=== PATIENT | female | born 1955 | race Caucasian/White ===

== ENCOUNTER → 2020-03-22 | Outpatient (CLI) | payer SELFPAY ==
--- NOTE | 2020-03-22 14:19 | US_ITS ---
STUDY: ULTRASOUND BREAST - RIGHT REASON FOR EXAM: Female, 64 years old. Palpable lump in the right breast. TECHNIQUE: Axial and longitudinal images of the RIGHT breast were performed with a high resolution ultrasound transducer. # OF IMAGES: 24 COMPARISON: Comparison is made with prior mammogram done earlier in the day. FINDINGS: RIGHT Breast: The palpable abnormality corresponds to a 1.5 cm x 1.5 cm x 1.4 cm lobulated hypoechoic solid mass. This is at the 12 o''clock position breast at 3 cm from nipple. There is evidence of increased color flow into the lesion. Biopsy recommended. US/Breast Limited Unilateral IMPRESSION: 1.5 cm x 1.5 cm x 1.4 cm lobulated hypoechoic solid mass at the 12 o''clock position of the breast at 3 cm from nipple. A biopsy is recommended. ASSESSMENT CATEGORY: BIRADS Category 5: Highly Suggestive of Malignancy - Appropriate Action Should Be Taken. A letter regarding these results will be sent to the patient by the facility within 30 days. Electronically Signed: Agustin Moura, at 15:42 EDT , Service support ,
--- NOTE | 2020-03-22 14:19 | BI_ITS ---
MAMMOGRAPHY - BILATERAL DIAGNOSTIC REASON FOR EXAM: Female, 64 years old. 3 week history of right breast lump. PERTINENT HISTORY: TECHNIQUE: Digital bilateral breast ananya (3D mammographic acquisition) in the CC and MLO projections. 2-D mediolateral oblique (MLO) and craniocaudad (CC) views of both breasts were obtained. CAD: Full Field Digital Mammography with Computer Added Detection was performed. COMPARISON: Comparison is made with prior examination dated 11/05/2011. FINDINGS: Breast Composition: The breasts are heterogeneously dense, which may obscure small masses. The palpable abnormality corresponds to a 1.3 cm x 1.6 cm spiculated nodule in the upper deep medial portion of the right breast. Microcalcifications are seen within it. Correlation with biopsy is recommended. Small benign-appearing bilateral axillary lymph nodes. No other significant abnormalities are identified. BI/DIAG MAMM W/CAD, BILAT IMPRESSION: The palpable abnormality corresponds to a 1.3 cm x 1.6 cm spiculated nodule in the upper deep medial portion of the right breast with microcalcifications. Biopsy is recommended. ASSESSMENT CATEGORY: BIRADS Category 5: Highly Suggestive of Malignancy - Appropriate Action Should Be Taken. A letter regarding these results will be sent to the patient by the facility within 30 days. Approximately 10% of breast cancers are not detected by mammography. A normal mammogram should not delay biopsy of a clinically suspicious abnormality. Electronically Signed: Agustin Moura, at 15:23 EDT , Service support ,
== END | disposition home or self-care (01) ==
LOC: OPBI 14:11
PROVIDERS: PCP Preventive Medicine Public Health & General Preventive Medicine; Referring Provider Preventive Medicine Public Health & General Preventive Medicine; Visit Provider Preventive Medicine Public Health & General Preventive Medicine
DX: N63.10 Unspecified lump in the right breast, unspecified quadrant (principal)
CPT/HCPCS: 76642; 77062; 77066; G0279

== ENCOUNTER → 2020-06-29 08:57 | Outpatient (CLI) | payer SELFPAY ==
--- NOTE | 2020-06-29 09:05 | BI_ITS ---
MAMMOGRAPHY - UNILATERAL DIAGNOSTIC: RIGHT BREAST REASON FOR EXAM: Female, 65 years old. Right breast lump. PERTINENT HISTORY: Personal history of breast cancer. Prior biopsy. TECHNIQUE: Digital unilateral breast ananya (3D mammographic acquisition) in the CC and MLO projections. 2-D mediolateral oblique (MLO) and craniocaudad (CC) views of both breasts were obtained. CAD: Full Field Digital Mammography with Computer Added Detection was performed. COMPARISON: Comparison is made with prior study dated 03/22/2020. FINDINGS: Breast Composition: The breasts are heterogeneously dense, which may obscure small masses. A tissue clip marker is seen in the irregular nodular density in the upper deep central portion of the right breast. The previously seen nodular density as decreased in size. It presently measures 1.1 cm x 1.2 cm. No other significant abnormalities are identified. BI/DIAG MAMM W/CAD, UNILAT IMPRESSION: Mild decrease in the size of the previously seen irregular nodule in the deep central portion of the right breast. ASSESSMENT CATEGORY: BIRADS Category 4: Suspicious - Biopsy Should Be Considered. A letter regarding these results will be sent to the patient by the facility within 30 days. Approximately 10% of breast cancers are not detected by mammography. A normal mammogram should not delay biopsy of a clinically suspicious abnormality. Electronically Signed: Agustin Moura MD at 10:52 EST , Service support ,
--- NOTE | 2020-06-29 09:54 | US_ITS ---
STUDY: ULTRASOUND BREAST - RIGHT REASON FOR EXAM: Female, 65 years old. Palpable lump in the right breast. TECHNIQUE: Axial and longitudinal images of the RIGHT breast were performed with a high resolution ultrasound transducer. # OF IMAGES: 31 COMPARISON: Comparison is made with prior ultrasound of the right breast dated 03/22/2020. FINDINGS: RIGHT Breast: The previously seen lobulated hypoechoic mass at the 12 o''clock position of the breast at 3 cm from nipple presently measures 1 cm x 1.7 cm x 0.9 cm. Increased vascularity is seen. US/Breast Limited Unilateral IMPRESSION: Persistent 1 cm x 1.7 cm x 0.9 cm irregular hypoechoic solid nodule at the 12 o''clock position of the breast at 3 cm from nipple. ASSESSMENT CATEGORY: BIRADS Category 4: Suspicious - Biopsy Should Be Considered. A letter regarding these results will be sent to the patient by the facility within 30 days. Electronically Signed: Agustin Moura MD at 10:53 EST , Service support ,
== END ==
PROVIDERS: PCP Preventive Medicine Public Health & General Preventive Medicine; Referring Provider Preventive Medicine Public Health & General Preventive Medicine; Visit Provider Preventive Medicine Public Health & General Preventive Medicine
DX: C50.919 Malignant neoplasm of unspecified site of unspecified female breast (principal)
CPT/HCPCS: 76642; 77061; 77065; G0279

== ENCOUNTER → 2020-09-04 13:36 | Outpatient (CLI) | payer SELFPAY ==
--- NOTE | 2020-09-04 14:22 | EKG12_ITS ---
Test Reason : PREOP Blood Pressure : / mmHG Vent. Rate : 064 BPM Atrial Rate : 064 BPM P-R Int : 122 ms QRS Dur : 074 ms QT Int : 392 ms P-R-T Axes : 054 019 038 degrees QTc Int : 404 ms Normal sinus rhythm Normal ECG Confirmed by DAGOBERTO HURST, DELMIS ([id number]), book editor SCOOTER ARTHUR ([id number]) on 09/05/2020 8:28:17 AM Referred By: JHOANA ROY Confirmed By:DELMIS ARENAS MD
--- NOTE | 2020-09-04 14:40 | RAD_ITS ---
STUDY: X-RAY CHEST REASON FOR EXAM: Female, 65 years old. PREOP TECHNIQUE: PA and lateral views of the chest. COMPARISON: None. FINDINGS: The lungs are clear and expanded. There is no demonstrated pleural abnormality. Normal size heart. Normal mediastinum and kimberli. Normal visualized pulmonary arteries. Normal visualized aortic arch and descending thoracic aorta. Normal visualized thoracic spine. Normal visualized ribs, clavicles, and shoulders. There is no demonstrated abnormality of the visualized soft tissue structures of the upper abdomen. RAD/Chest PA and Lateral IMPRESSION: Normal x-ray examination of the chest. Electronically Signed: Jose Jacques DO at 0:05 EDT Tel , Service support ,
[2020-09-04 16:04] LABS: Hematocrit 43.9 % (37-47); Hemoglobin 14.8 g/dL (12.0-15.0); Mean Corp Hgb Conc 33.7 g/dL (32-36); Mean Corpuscular Hgb 34.3 pg (27.0-32.0); Mean Corpuscular Volume 101.6 fL (81-99); Mean Platelet Vol. 12.1 fl (6.2-12.0); Platelet Count 245 K/mm3 (150-450); RBC Distribution Width SD 49.2 fl (35.1-43.9); Red Blood Count 4.32 M/mm3 (4.2-5.4); White Blood Count 7.9 K/mm3 (4.4-11.0)
[2020-09-04 16:10] LABS: Color, Urine Yellow (Yellow); Glucose, Dipstick Normal (Normal); Ketone-Dipstick Negative (Negative); Leukocyte Esterase-Dipstick Negative /ul (Negative); Nitrite-Dipstick Negative (Negative); Occult Blood-Urine Negative /ul (Negative); Protein-Dipstick Negative (Negative); Specific Gravity, Urine 1.025 (1.002-1.030); Urine Bilirubin Dipstick Negative (Negative); Urine Clarity Clear (Clear); Urine Urobilinogen Normal (Normal)
[2020-09-04 16:29] LABS: Anion Gap 8 (5-15); BUN 7 mg/dL (7-18); Calcium,Total 9.4 mg/dL (8.5-10.1); Chloride 106 mmol/L (98-107); EST Glomerular Filtration Rate 59 mL/min (>60); Est Glom Filt Rate - Afr Amer 72 mL/min (>60); Glucose 108 mg/dL (74-106); Potassium 3.8 mmol/L (3.5-5.1); Sodium Level 140 mmol/L (136-145)
== END ==
PROVIDERS: PCP Preventive Medicine Public Health & General Preventive Medicine
DX: Z01.810 Encounter for preprocedural cardiovascular examination (principal); C50.911 Malignant neoplasm of unspecified site of right female breast
CPT/HCPCS: 36415; 71046; 80048; 81002; 85027; 87086; 87088; 93005

== ENCOUNTER → 2021-12-04 | Outpatient (CLI) | payer MEDICARE, OTHER, SELFPAY ==
[2021-12-04 08:42] LABS: Absolute Lymphocyte Count 1.72 X10^3/uL (0.83-4.51); Absolute Neutrophil Count 3.9 X10^3/uL (2.0-7.7); Basophil# 0.06 X10^3/uL; Eosinophil# 0.11 X10^3/uL; Eosinophils% 1.8 % (0-5); Hematocrit 38.7 % (37-47); Hemoglobin 13.2 g/dL (12.0-15.0); Lymphocyte # 1.72 X10^3/ul (0.83-4.51); Lymphocyte % 27.6 % (19-41); Mean Corp Hgb Conc 34.1 g/dL (32-36); Mean Corpuscular Hgb 35.2 pg (27.0-32.0); Mean Corpuscular Volume 103.2 fL (81-99); Monocyte# 0.48 X10^3/uL; Monocyte% 7.7 % (0-10); NRBC Flagged by Analyzer 0 % (0-5); Neutrophil # 3.85 X10^3/uL (2.7-7.7); Neutrophil % 61.6 % (47-70); Platelet Count 219 K/mm3 (150-450); RBC Distribution Width CV 12.6 % (11.6-14.6); RBC Distribution Width SD 48.2 fl (35.1-43.9); Red Blood Count 3.75 M/mm3 (4.2-5.4); White Blood Count 6.2 K/mm3 (4.4-11.0)
[2021-12-04 08:49] LABS: Erythrocyte Sedimentation Rate 5 mm/hr (0-30)
[2021-12-04 09:02] LABS: Fibrinogen 330 mg/dl (203-444)
[2021-12-04 09:12] LABS: Insulin 12.1 mU/L (2.6-37.6); Progesterone Level 0.34 ng/mL (See Comment); T3 Total - Triiodothyronine 1.09 ng/mL (0.6-1.81); Vitamin B12 506 pg/mL (211-911)
[2021-12-04 09:13] LABS: Hemoglobin A1c 5.4 % (3.8-5.6)
[2021-12-04 10:01] LABS: ALB/GLOB Ratio 1.1 RATIO (0.9-2.4); AST(SGOT) 11 U/L (15-37); Alanine Aminotransfer ALT/SGPT 16 U/L (13-56); Albumin, Serum 3.5 g/dL (3.2-5.0); Alkaline Phosphatase 71 U/L (45-117); Anion Gap 4 (5-15); BUN 16 mg/dL (7-18); BUN/Creat Ratio 16.6 RATIO (10-20); CRP, High Sensitivity Cardiac 1.13 mg/L; Calcium,Total 8.9 mg/dL (8.5-10.1); Chloride 110 mmol/L (98-107); Cholesterol 138 mg/dL (200); Creatinine, Serum 0.96 mg/dL (0.55-1.02); EST Glomerular Filtration Rate 62 mL/min (>60); Est Glom Filt Rate - Afr Amer 75 mL/min (>60); Estradiol < 11.0 pg/mL; Ferritin 22 ng/mL (8-252); Follicle Stimulating Hormone 82.1 mIU/mL; Free T3 2.5 pg/mL (2.18-3.98); Globulin 3.1 g/dL (2.2-4.2); Glucose 106 mg/dL (74-106); High Density Lipoprotein 68 mg/dL; Iron 56 ug/dL (50-170); Iron Binding Capacity,Total 339 ug/dL (250-450); LDH 140 U/L (84-246); Luteinizing Hormone 40.7 mIU/mL; Potassium 4.3 mmol/L (3.5-5.1); Protein, Total 6.6 g/dL (6.4-8.2); Sodium Level 141 mmol/L (136-145); T4 Free Direct 0.96 ng/dL (0.76-1.46); Triglycerides 32 mg/dL; Uric Acid 5.9 mg/dL (2.6-6.0); Very Low Density Lipoprotein 6 mg/dL (5-40)
[2021-12-11 12:08] LABS: DHEA Sulfate 53.2 ug/dL (20.4-186.6); Red Blood Cell Count Test/G6PD 3.92 x10E6/uL (3.77-5.28); Testosterone, % Free 2.04 % (0.50-2.80); Testosterone, Free 0.08 ng/dL (0.10-0.85); Testosterone, Total 4 ng/dL (3-67)
[2021-12-11 16:17] LABS: Cancer Antigen 125 10.5 U/mL (0.0-38.1); Carcinoembryonic Antigen 1.7 ng/mL (0.0-4.7); G6PD Quant Test 324 (127-427); Thyroglobulin Antibody < 1.0 IU/mL (0.0-0.9); Thyroid Peroxidase AB 11 IU/mL (0-34)
== END | disposition home or self-care (01) ==
LOC: LAB 08:03
PROVIDERS: PCP Preventive Medicine Public Health & General Preventive Medicine
DX: R53.83 Other fatigue (principal); D55.0 Anemia due to glucose-6-phosphate dehydrogenase [G6PD] deficiency; C50.919 Malignant neoplasm of unspecified site of unspecified female breast; R53.81 Other malaise; E55.9 Vitamin D deficiency, unspecified; D51.0 Vitamin B12 deficiency anemia due to intrinsic factor deficiency; D52.0 Dietary folate deficiency anemia; E63.8 Other specified nutritional deficiencies; E61.1 Iron deficiency; R79.89 Other specified abnormal findings of blood chemistry; E78.5 Hyperlipidemia, unspecified; R73.09 Other abnormal glucose; M25.50 Pain in unspecified joint; N95.1 Menopausal and female climacteric states
CPT/HCPCS: 36415; 80053; 80061; 82306; 82378; 82533; 82607; 82627; 82670; 82728; 82746; 82955; 83001; 83002; 83036; 83090; 83525; 83540; 83550; 83615; 83695; 84144; 84402; 84403; 84439; 84443; 84480; 84481; 84482; 84550; 85025; 85384; 85652; 86141; 86300; 86304; 86376; 86800; 82626

== ENCOUNTER → 2022-12-03 | Outpatient (CLI) | payer MEDICARE, OTHER, SELFPAY ==
[2022-12-03 10:54] LABS: Erythrocyte Sedimentation Rate 7 mm/hr (0-30)
[2022-12-03 10:58] LABS: Absolute Lymphocyte Count 2.77 X10^3/uL (0.83-4.51); Absolute Neutrophil Count 2.7 X10^3/uL (2.0-7.7); Basophil# 0.07 X10^3/uL; Basophil% 1.1 % (0-1); Eosinophil# 0.09 X10^3/uL; Eosinophils% 1.5 % (0-5); Hematocrit 42.4 % (37-47); Hemoglobin 14.6 g/dL (12.0-15.0); Lymphocyte # 2.77 X10^3/ul (0.83-4.51); Lymphocyte % 44.8 % (19-41); Mean Corp Hgb Conc 34.4 g/dL (32-36); Mean Corpuscular Hgb 33.4 pg (27.0-32.0); Mean Platelet Vol. 10.8 fl (6.2-12.0); Monocyte# 0.48 X10^3/uL; Monocyte% 7.8 % (0-10); NRBC Flagged by Analyzer 0 % (0-5); Neutrophil # 2.74 X10^3/uL (2.7-7.7); Neutrophil % 44.3 % (47-70); Platelet Count 191 K/mm3 (150-450); RBC Distribution Width CV 13.6 % (11.6-14.6); RBC Distribution Width SD 49.1 fl (35.1-43.9); Red Blood Count 4.37 M/mm3 (4.2-5.4); White Blood Count 6.2 K/mm3 (4.4-11.0)
[2022-12-03 11:27] LABS: Progesterone Level 0.26 ng/mL (See Comment); T3 Total - Triiodothyronine 1.27 ng/mL (0.6-1.81); Vitamin B12 661 pg/mL (211-911); Vitamin D,25 Hydroxy 69.4 ng/mL
[2022-12-03 11:37] LABS: CRP, High Sensitivity Cardiac 0.73 mg/L; Estradiol 12.7 pg/mL; Ferritin 28 ng/mL (8-252); Follicle Stimulating Hormone 73.3 mIU/mL; Free T3 2.7 pg/mL (2.18-3.98); Iron 133 ug/dL (50-170); Iron Binding Capacity,Total 315 ug/dL (250-450); LDH 149 U/L (84-246); Luteinizing Hormone 37.5 mIU/mL; PERCENT IRON SATURATION 42.2 % (15.0-55.0); T4 Free Direct 0.64 ng/dL (0.76-1.46); Thyroid Stim Hormone (TSH) 8.15 uIU/mL (0.358-3.74)
[2022-12-06 17:07] LABS: DHEA Sulfate 60.5 ug/dL (20.4-186.6); Testosterone, % Free 2.79 % (0.50-2.80); Testosterone, Free 0.31 ng/dL (0.10-0.85); Testosterone, Total 11 ng/dL (3-67)
== END | disposition home or self-care (01) ==
DX: N95.1 Menopausal and female climacteric states (principal); E27.1 Primary adrenocortical insufficiency; R53.83 Other fatigue; E03.9 Hypothyroidism, unspecified; E55.9 Vitamin D deficiency, unspecified; D51.0 Vitamin B12 deficiency anemia due to intrinsic factor deficiency; E61.1 Iron deficiency; R79.82 Elevated C-reactive protein (CRP); R79.89 Other specified abnormal findings of blood chemistry; M25.50 Pain in unspecified joint; R70.0 Elevated erythrocyte sedimentation rate; D52.0 Dietary folate deficiency anemia
CPT/HCPCS: 36415; 82306; 82533; 82607; 82627; 82670; 82728; 82746; 83001; 83002; 83540; 83550; 83615; 84144; 84402; 84403; 84439; 84443; 84480; 84481; 84482; 85025; 85652; 86141; 82626

== ENCOUNTER → 2023-02-05 | Outpatient (CLI) | payer MEDICARE, OTHER, SELFPAY ==
[2023-02-05 14:02] LABS: Erythrocyte Sedimentation Rate 8 mm/hr (0-30)
[2023-02-05 14:04] LABS: Absolute Neutrophil Count 3.2 X10^3/uL (2.0-7.7); Basophil# 0.06 X10^3/uL; Basophil% 0.9 % (0-1); Eosinophil# 0.13 X10^3/uL; Eosinophils% 1.9 % (0-5); Hematocrit 43.1 % (37-47); Hemoglobin 14.3 g/dL (12.0-15.0); Mean Corp Hgb Conc 33.2 g/dL (32-36); Mean Corpuscular Hgb 33.3 pg (27.0-32.0); Mean Corpuscular Volume 100.2 fL (81-99); Mean Platelet Vol. 10.6 fl (6.2-12.0); Monocyte# 0.49 X10^3/uL; Monocyte% 7.3 % (0-10); NRBC Flagged by Analyzer 0.9 % (0-5); Neutrophil # 3.16 X10^3/uL (2.7-7.7); Neutrophil % 47.5 % (47-70); Platelet Count 223 K/mm3 (150-450); RBC Distribution Width SD 48.2 fl (35.1-43.9); White Blood Count 6.7 K/mm3 (4.4-11.0)
[2023-02-05 14:18] LABS: T3 Total - Triiodothyronine 1.37 ng/mL (0.6-1.81)
[2023-02-05 14:50] LABS: ALB/GLOB Ratio 0.8 RATIO (0.9-2.4); AST(SGOT) 18 U/L (15-37); Alanine Aminotransfer ALT/SGPT 30 U/L (13-56); Albumin, Serum 3.2 g/dL (3.2-5.0); Alkaline Phosphatase 68 U/L (45-117); Anion Gap 5 (5-15); BUN 13 mg/dL (7-18); BUN/Creat Ratio 15.2 RATIO (10-20); CRP, High Sensitivity Cardiac 1.68 mg/L; Chloride 110 mmol/L (98-107); Creatinine, Serum 0.86 mg/dL (0.55-1.02); EST Glomerular Filtration Rate 70 mL/min (>60); Est Glom Filt Rate - Afr Amer 85 mL/min (>60); Globulin 4.2 g/dL (2.2-4.2); Glucose 103 mg/dL (74-106); Potassium 3.8 mmol/L (3.5-5.1); Protein, Total 7.4 g/dL (6.4-8.2); Sodium Level 137 mmol/L (136-145); T4 Free Direct 0.43 ng/dL (0.76-1.46); Thyroid Stim Hormone (TSH) 2.87 uIU/mL (0.358-3.74)
[2023-02-12 05:07] LABS: T3 Reverse 10.6 ng/dL (9.2-24.1)
== END | disposition home or self-care (01) ==
LOC: LAB 13:30
DX: R53.81 Other malaise (principal); R53.83 Other fatigue; R70.0 Elevated erythrocyte sedimentation rate; R79.82 Elevated C-reactive protein (CRP); R79.89 Other specified abnormal findings of blood chemistry; E78.5 Hyperlipidemia, unspecified; E03.9 Hypothyroidism, unspecified
CPT/HCPCS: 36415; 80053; 84439; 84443; 84480; 84481; 84482; 85025; 85652; 86141

== ENCOUNTER → 2023-08-21 | Outpatient (CLI) | payer MEDICARE, OTHER, SELFPAY ==
[2023-08-21 09:29] LABS: Absolute Lymphocyte Count 2.62 X10^3/uL (0.83-4.51); Absolute Neutrophil Count 2.7 X10^3/uL (2.0-7.7); Basophil# 0.07 X10^3/uL; Basophil% 1.2 % (0-1); Eosinophil# 0.05 X10^3/uL; Eosinophils% 0.8 % (0-5); Hematocrit 43.9 % (37-47); Lymphocyte # 2.62 X10^3/ul (0.83-4.51); Lymphocyte % 44.1 % (19-41); Mean Corp Hgb Conc 31.9 g/dL (32-36); Mean Corpuscular Volume 100.2 fL (81-99); Mean Platelet Vol. 11.6 fl (6.2-12.0); Monocyte# 0.47 X10^3/uL; Monocyte% 7.9 % (0-10); NRBC Flagged by Analyzer 0 % (0-5); Neutrophil % 45.5 % (47-70); Platelet Count 224 K/mm3 (150-450); RBC Distribution Width CV 12.6 % (11.6-14.6); RBC Distribution Width SD 46.8 fl (35.1-43.9); Red Blood Count 4.38 M/mm3 (4.2-5.4); White Blood Count 5.9 K/mm3 (4.4-11.0)
[2023-08-21 10:00] LABS: Insulin 13.2 mU/L (2.6-37.6); T3 Total - Triiodothyronine 1.99 ng/mL (0.6-1.81); Vitamin B12 916 pg/mL (211-911); Vitamin D,25 Hydroxy 70.8 ng/mL
[2023-08-21 17:21] LABS: AST(SGOT) 17 U/L (15-37); Alanine Aminotransfer ALT/SGPT 23 U/L (13-56); Albumin, Serum 3.6 g/dL (3.2-5.0); Alkaline Phosphatase 70 U/L (45-117); Anion Gap 7 (5-15); BUN 15 mg/dL (7-18); BUN/Creat Ratio 16.6 RATIO (10-20); CRP, High Sensitivity Cardiac 1.68 mg/L; Calcium,Total 9.3 mg/dL (8.5-10.1); Chloride 106 mmol/L (98-107); Cholesterol 159 mg/dL (200); EST Glomerular Filtration Rate 66 mL/min (>60); Est Glom Filt Rate - Afr Amer 80 mL/min (>60); Free T3 4.4 pg/mL (2.18-3.98); Globulin 3.5 g/dL (2.2-4.2); Glucose 109 mg/dL (74-106); High Density Lipoprotein 71 mg/dL; LDH 164 U/L (84-246); Potassium 4.1 mmol/L (3.5-5.1); Protein, Total 7.1 g/dL (6.4-8.2); Sodium Level 138 mmol/L (136-145); T4 Free Direct 0.69 ng/dL (0.76-1.46); Thyroid Stim Hormone (TSH) 1.64 uIU/mL (0.358-3.74); Triglycerides 42 mg/dL; Very Low Density Lipoprotein 8 mg/dL (5-40)
[2023-08-21 18:07] LABS: Hemoglobin A1c 5.7 % (3.8-5.6)
[2023-08-26 16:09] LABS: T3 Reverse 17.9 ng/dL (9.2-24.1)
== END | disposition home or self-care (01) ==
LOC: LAB 08:13
DX: R53.81 Other malaise (principal); R53.83 Other fatigue; E55.9 Vitamin D deficiency, unspecified; D51.0 Vitamin B12 deficiency anemia due to intrinsic factor deficiency; G52.0 Disorders of olfactory nerve; E78.00 Pure hypercholesterolemia, unspecified; R73.09 Other abnormal glucose; I25.10 Atherosclerotic heart disease of native coronary artery without angina pectoris; E03.9 Hypothyroidism, unspecified; Z85.3 Personal history of malignant neoplasm of breast
CPT/HCPCS: 36415; 80053; 80061; 82306; 82607; 82746; 83036; 83525; 83615; 84439; 84443; 84480; 84481; 84482; 85025; 86141

== ENCOUNTER → 2023-11-13 | Outpatient (CLI) | payer MEDICARE, OTHER, SELFPAY ==
[2023-11-13 13:50] LABS: T3 Total - Triiodothyronine 1.07 ng/mL (0.6-1.81)
[2023-11-13 14:17] LABS: Free T3 2.5 pg/mL (2.18-3.98); Thyroid Stim Hormone (TSH) 1.74 uIU/mL (0.358-3.74)
[2023-11-17 16:10] LABS: T3 Reverse 27.3 ng/dL (9.2-24.1)
== END | disposition home or self-care (01) ==
LOC: LAB 12:41
DX: E03.9 Hypothyroidism, unspecified (principal)
CPT/HCPCS: 36415; 84439; 84443; 84480; 84481; 84482

== ENCOUNTER → 2024-02-08 | Outpatient (CLI) | payer MEDICARE, OTHER, SELFPAY ==
[2024-02-08 10:11] LABS: Erythrocyte Sedimentation Rate 12 mm/hr (0-30)
[2024-02-08 10:13] LABS: Absolute Lymphocyte Count 2.72 X10^3/uL (0.83-4.51); Absolute Neutrophil Count 5.7 X10^3/uL (2.0-7.7); Basophil# 0.08 X10^3/uL; Basophil% 0.9 % (0-1); Eosinophil# 0.09 X10^3/uL; Hematocrit 47.8 % (37-47); Hemoglobin 15.7 g/dL (12.0-15.0); Lymphocyte # 2.72 X10^3/ul (0.83-4.51); Lymphocyte % 29.6 % (19-41); Mean Corp Hgb Conc 32.8 g/dL (32-36); Mean Corpuscular Hgb 32.3 pg (27.0-32.0); Mean Corpuscular Volume 98.4 fL (81-99); Mean Platelet Vol. 10.8 fl (6.2-12.0); Monocyte# 0.59 X10^3/uL; Monocyte% 6.4 % (0-10); NRBC Flagged by Analyzer 0 % (0-5); Neutrophil # 5.65 X10^3/uL (2.7-7.7); Neutrophil % 61.6 % (47-70); Platelet Count 209 K/mm3 (150-450); RBC Distribution Width CV 13.1 % (11.6-14.6); RBC Distribution Width SD 47.3 fl (35.1-43.9); Red Blood Count 4.86 M/mm3 (4.2-5.4); White Blood Count 9.2 K/mm3 (4.4-11.0)
[2024-02-08 10:28] LABS: Vitamin B12 877 pg/mL (211-911)
[2024-02-08 10:48] LABS: Hemoglobin A1c 5.8 % (3.8-5.6)
[2024-02-08 13:27] LABS: AST(SGOT) 22 U/L (15-37); Alanine Aminotransfer ALT/SGPT 26 U/L (13-56); Albumin, Serum 3.8 g/dL (3.2-5.0); Alkaline Phosphatase 78 U/L (45-117); Anion Gap 7 (5-15); BUN 21 mg/dL (7-18); BUN/Creat Ratio 20.8 RATIO (10-20); Calcium,Total 9.8 mg/dL (8.5-10.1); Chloride 106 mmol/L (98-107); Creatinine, Serum 1.01 mg/dL (0.55-1.02); EST Glomerular Filtration Rate 58 mL/min (>60); Est Glom Filt Rate - Afr Amer 70 mL/min (>60); Estradiol < 11.0 pg/mL; Ferritin 32 ng/mL (8-252); Folates, (Folic Acid) > 100.00 ng/mL (3.1-55.4); Globulin 3.9 g/dL (2.2-4.2); Glucose 101 mg/dL (74-106); LDH 213 U/L (84-246); Potassium 4.2 mmol/L (3.5-5.1); Protein, Total 7.7 g/dL (6.4-8.2); Sodium Level 138 mmol/L (136-145)
[2024-02-09 04:07] LABS: CRP, High Sensitivity 1.64 mg/L (0.00-3.00); PROGESTERONE 0.2 ng/mL (.)
[2024-02-17 14:10] LABS: DHEA Sulfate 68.6 ug/dL (20.4-186.6); Insulin Level 11.4 uIU/mL (2.6-24.9); Testosterone, % Free 1.77 % (0.50-2.80); Testosterone, Free 0.18 ng/dL (0.10-0.85); Testosterone, Total 10 ng/dL (3-67)
== END | disposition home or self-care (01) ==
DX: R53.81 Other malaise (principal); E27.1 Primary adrenocortical insufficiency; R53.83 Other fatigue; D51.0 Vitamin B12 deficiency anemia due to intrinsic factor deficiency; D52.0 Dietary folate deficiency anemia; E63.8 Other specified nutritional deficiencies; E72.11 Homocystinuria; R73.09 Other abnormal glucose; N95.1 Menopausal and female climacteric states; R70.0 Elevated erythrocyte sedimentation rate
CPT/HCPCS: 36415; 80053; 82533; 82607; 82627; 82670; 82728; 82746; 83036; 83525; 83615; 84144; 84402; 84403; 85025; 85652; 86141; 82626

== ENCOUNTER → 2024-02-22 | Outpatient (CLI) | payer MEDICARE, OTHER, SELFPAY ==
[2024-02-22 13:02] LABS: T3 Total - Triiodothyronine 1.17 ng/mL (0.6-1.81)
[2024-02-22 13:07] LABS: Free T3 2.7 pg/mL (2.18-3.98); T4 Free Direct 0.83 ng/dL (0.76-1.46)
[2024-02-23 11:10] LABS: HOMOCYSTEINE 8.2 umol/L (0.0-17.2)
[2024-02-25 14:12] LABS: T3 Reverse 23.2 ng/dL (9.2-24.1)
== END | disposition home or self-care (01) ==
DX: E03.9 Hypothyroidism, unspecified (principal); E27.1 Primary adrenocortical insufficiency; R53.83 Other fatigue; D51.0 Vitamin B12 deficiency anemia due to intrinsic factor deficiency; D52.0 Dietary folate deficiency anemia; E63.8 Other specified nutritional deficiencies; E72.11 Homocystinuria; R73.09 Other abnormal glucose; R79.89 Other specified abnormal findings of blood chemistry; N95.1 Menopausal and female climacteric states; R70.0 Elevated erythrocyte sedimentation rate
CPT/HCPCS: 83090; 84439; 84443; 84480; 84481; 84482